=== PATIENT | male | born 1990 | race Caucasian/White ===

== ENCOUNTER 2017-11-10 09:53 | Emergency (ER) | payer SELFPAY ==
[~2017-11-10] VITALS: Ht 182.9 cm; Wt 79.4 kg
[~2017-11-10 09:53] MED LIST: CRUTCH1 EACH; CYCLOBENZAPRINE10 MG PO; DAYPRO600 MG PO; GENTAMICIN SULFA5 ML OD; IBUPROFEN200 M1 PO; IBUPROFEN600 MG PO; NORCO 5-325 TA1 EACH PO; ROBAXIN-750750 MG PO; TYLENOL325 MG PO; ZOFRAN ODT8 MG SL
== END 2017-11-10 10:03 | disposition home or self-care (01) ==
LOC: ED 09:53
DX: M54.2 Cervicalgia (principal)

== ENCOUNTER 2018-09-14 20:09 | Emergency (ER) | payer SELFPAY ==
[~2018-09-14] VITALS: Ht 182.9 cm; Wt 79.4 kg
--- OUTSIDE RECORDS SUMMARY | 2018-09-14 20:12 | XMS ---
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 ENasrin VISIT COUNT (12 MO.) 2 JAMIR Huertas TOTAL 2 NOTE: Visits indicate total known visits. ED/UCC VISIT TRACKING (12 MO.) 09/14/2018 20:09 [facility] Carpio [place] TYPE: Emergency COMPLAINT: - RIGHT LEG PAIN/NON INJURY 11/10/2017 09:54 [facility] Carpio [place] TYPE: Emergency COMPLAINT: - NECK PAIN/NO INJURY DIAGNOSES: - Cervicalgia INPATIENT VISIT TRACKING (12 MO.) No inpatient visits to display in this time frame [email or web address]
[2018-09-14] MEDS ORDERED: NORCO 5-325 TA1 EACH PO (21:32)
[2018-09-14] MEDS ORDERED: CRUTCH1 EACH MISC (21:36)
== END 2018-09-14 21:48 | disposition home or self-care (01) ==
LOC: ED 20:09
DX: S86.111A Strain of other muscle(s) and tendon(s) of posterior muscle group at lower leg level, right leg, initial encounter (principal); F17.200 Nicotine dependence, unspecified, uncomplicated; X58.XXXA Exposure to other specified factors, initial encounter
CPT/HCPCS: 80053; 83735; 85025; 85379; 99283

== ENCOUNTER 2019-04-04 16:12 | Emergency (ER) | payer SELFPAY ==
[~2019-04-04] VITALS: Ht 182.9 cm; Wt 79.4 kg
[~2019-04-04 16:12] MED LIST changes: +CRUTCH1 EACH MISC
--- OUTSIDE RECORDS SUMMARY | 2019-04-04 16:14 | XMS ---
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 ENasrin VISIT COUNT (12 MO.) 2 JAMIR Huertas TOTAL 2 NOTE: Visits indicate total known visits. ED/UCC VISIT TRACKING (12 MO.) 04/04/2019 16:13 [facility]io [place] TYPE: Emergency COMPLAINT: - DENTAL PAIN 09/14/2018 20:09 [facility] [place] TYPE: Emergency COMPLAINT: - RIGHT LEG PAIN/NON INJURY DIAGNOSES: - Strain musc/tend post grp at low leg level, right leg, init - Nicotine dependence, unspecified, uncomplicated - Exposure to other specified factors, initial encounter - Pain in right lower leg INPATIENT VISIT TRACKING (12 MO.) No inpatient visits to display in this time frame [email or web address]
[2019-04-04] MEDS ORDERED: IBUPROFEN200 M1 PO (16:22)
[2019-04-04] MEDS ORDERED: TYLENOL325 MG PO (16:23)
[2019-04-04] MEDS ORDERED: PENICILLIN V P500 MG PO (16:31)
[2019-04-04] MEDS ORDERED: NAPROSYN500 MG PO (16:31)
== END 2019-04-04 16:45 | disposition home or self-care (01) ==
LOC: ED 16:12
DX: K02.9 Dental caries, unspecified (principal); Z87.891 Personal history of nicotine dependence; Z79.899 Other long term (current) drug therapy
CPT/HCPCS: 99282

== ENCOUNTER 2020-12-17 22:57 | Emergency (ER) | payer SELFPAY ==
[~2020-12-17] VITALS: Ht 182.9 cm; Wt 77.1 kg
[~2020-12-17 22:57] MED LIST changes: +NAPROSYN500 MG PO; +PENICILLIN V P500 MG PO
--- OUTSIDE RECORDS SUMMARY | 2020-12-17 23:04 | XMS ---
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 María has no Care Guidelines for this patient. Care History Medical/Surgical 04/07/2019 [facility] CALLED PATIENT- PATIENT DOES NOT QUALIFY FOR STATE INSURANCE OF . PATIENT STATED HE MAKES TOO MUCH MONEY WITH HIS UNEMPLOYMENT. - POP DID OFFER PATIENT THE [employer] WEBSITE INFORMATION FOR PATIENT TO APPLY FOR INSURANCE BASED ON CURRENT INCOME. - PATIENT STATED IF HIS INCOME CHANGES HE WILL BE IN CONTACT WITH [facility]- [facility] CAN HELP PATIENT WITH PCP SET UP ONCE INSURANCE IS ESTABLISHED. E.D. VISIT COUNT (12 MO.) 1 [facility] TOTAL 1 NOTE: Visits indicate total known visits. ED/UCC VISIT TRACKING (12 MO.) 12/17/2020 22:58 JAMIR Carpio [place] TYPE: Emergency COMPLAINT: - VOMITING,,LOSS OF APPETITE INPATIENT VISIT TRACKING (12 MO.) No inpatient visits to display in this time frame [id number]
[2020-12-18] MEDS ORDERED: ONDANSETRON ODT8 MG PO (03:30)
[2020-12-18] MEDS ORDERED: OMEPRAZOLE20 MG PO (03:30)
[2020-12-18] MEDS ORDERED: PROMETHAZINE HC25 M1 PO (03:30)
== END 2020-12-18 04:24 | disposition home or self-care (01) ==
LOC: ED 22:57
DX: K29.00 Acute gastritis without bleeding (principal); E87.6 Hypokalemia; U07.1 COVID-19; F17.200 Nicotine dependence, unspecified, uncomplicated
CPT/HCPCS: 80053; 81001; 83735; 85025; 96365; 96375; 96376; 99284-25; C9113; J2405; J2550; J3480; J7121

== ENCOUNTER 2022-11-15 13:14 | Emergency (ER) | payer OTHER ==
[~2022-11-15] VITALS: Ht 182.9 cm; Wt 71.3 kg
[~2022-11-15 13:14] MED LIST changes: +OMEPRAZOLE20 MG PO; +ONDANSETRON ODT8 MG PO; +PROMETHAZINE HC25 M1 PO
--- OUTSIDE RECORDS SUMMARY | 2022-11-15 13:17 | XMS ---
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 Care History Medical/Surgical 04/07/2019 [facility] CALLED PATIENT- PATIENT DOES NOT QUALIFY FOR STATE INSURANCE OF . PATIENT STATED HE MAKES TOO MUCH MONEY WITH HIS UNEMPLOYMENT. - POP DID OFFER PATIENT THE [employer] WEBSITE INFORMATION FOR PATIENT TO APPLY FOR INSURANCE BASED ON CURRENT INCOME. - PATIENT STATED IF HIS INCOME CHANGES HE WILL BE IN CONTACT WITH [employer]- W CAN HELP PATIENT WITH PCP SET UP ONCE INSURANCE IS ESTABLISHED. E.D. VISIT COUNT (12 MO.) 1 [facility] TOTAL 1 NOTE: Visits indicate total known visits. ED/UCC VISIT TRACKING (12 MO.) 11/15/2022 13:14 JAMIR Carpio [place] TYPE: Emergency COMPLAINT: - R ANKLE PAIN INPATIENT VISIT TRACKING (12 MO.) No inpatient visits to display in this time frame [email or web address]
[2022-11-15] MEDS ORDERED: VENTOLIN HFA18 GM INH (14:24)
[2022-11-15 14:31] VITALS: BP 145/81
== END 2022-11-15 14:32 | disposition home or self-care (01) ==
LOC: ED 13:14
DX: S93.401A Sprain of unspecified ligament of right ankle, initial encounter (principal); F17.200 Nicotine dependence, unspecified, uncomplicated; X50.1XXA Overexertion from prolonged static or awkward postures, initial encounter
CPT/HCPCS: 73610; 99283 25